=== PATIENT | male | born 1980 | race Caucasian/White ===

== ENCOUNTER 2018-10-20 08:18 | Emergency (ER) | payer SELFPAY ==
--- NOTE | 2018-10-20 08:27 | ER Report ---
History and Physical Time Seen By MD: 08:25 HPI/ROS CHIEF COMPLAINT: Right-sided lower chest pain HISTORY OF PRESENT ILLNESS: Patient is a 38-year-old male here with complaints of right lower rib pain status post fall on Wednesday with acute onset of chest pain and shortness breath starting today. Patient is afebrile, denies productive cough, denies prior history of clots, fevers or chills. Patient is tender on palpation in the right upper quadrant and right lower ribs. There are no obvious signs of ecchymosis, bony deformities at time of evaluation, patient's oxygen saturations remained greater than 94% during evaluation. Patient is hemod ynamically stable, afebrile at time of evaluation. REVIEW OF SYSTEMS: Constitutional: No fever, no chills. Eyes: No discharge. ENT: No sore throat. Cardiovascular: + right sided lower chest pain, no palpitations. Respiratory: No cough, + shortness of breath. Gastrointestinal: No abdominal pain, no vomiting. Genitourinary: No hematuria. Musculoskeletal: No back pain. Skin: No rashes. Neurological: No headache. Allergies: Coded Allergies: No Known Drug Allergies (Unverified , 10/20/18) Home Meds Active Scripts Tramadol Hcl (TRAMADOL HCL) 50 Mg Tablet, 50 MG PO Q6H PRN for PAIN, #12 TAB 0 Refills Prov:AMELIA KIRBY DO 10/20/18 Lidocaine (Lidocaine) 5 % Adh..patch, 1 PATCH TD Q12H PRN for PAIN, #20 PATCH Prov:AMELIA KIRBY DO 10/20/18 Constitutional Vital Sign - Last 24 Hours 10/20/18 10/20/18 10/20/18 10/20/18 08:22 08:30 09:00 09:30 Temp 97.9 Pulse 73 80 73 69 Resp 22 30 77 9 B/P (MAP) 125/85 124/95 (105) /??? /??? Pulse Ox 97 96 96 94 O2 Delivery Room Air 10/20/18 10/20/18 09:58 10:00 Pulse 67 Resp 42 B/P (MAP) 121/90 (100) 119/82 (94) Pulse Ox 94 Physical Exam General Appearance: The patient is alert, has no immediate need for airway protection and no signs of toxicity. Uncomfortable appearing Eyes: Pupils equal and round no pallor or injection. ENT, Mouth: Mucous membranes are moist. Respiratory: There are no retractions, lungs are clear to auscultation, + right lower CP on palpation of lower ribs. Cardiovascular: Regular rate and rhythm. Gastrointestinal: Abdomen is soft and non tender, no masses, bowel sounds normal. Neurological: No focal neuro deficits Skin: Warm and dry, no rashes. Musculoskeletal: Neck is supple non tender. Extremities are nontender, nonswollen and have full range of motion. DIFFERENTIAL DIAGNOSIS: After history and physical exam differential diagnosis was considered for shortness of breath including but not limited to pulmonary infectious process, COPD, asthma, pulmonary embolus and congestive heart failure. Trauma Medical Decision Making Data Points Result Diagram: 10/20/18 0826 10/20/18 0826 Laboratory Hematology Test 10/20/18 08:26 10/20/18 09:00 Red Blood Count 5.41 M/uL (4.00-5.60) Mean Corpuscular Volume 90.9 fL (80.0-96.0) Mean Corpuscular Hemoglobin 31.3 pg (26.0-33.0) Mean Corpuscular Hemoglobin Concent 34.5 g/dL (32.0-36.0) Red Cell Distribution Width 13.0 % (11.5-14.5) Mean Platelet Volume 8.0 fL (7.2-11.1) Neutrophils (%) (Auto) 54.9 % (39.4-72.5) Lymphocytes (%) (Auto) 31.8 % (17.6-49.6) Monocytes (%) (Auto) 8.0 % (4.1-12.4) Eosinophils (%) (Auto) 4.2 % (0.4-6.7) Basophils (%) (Auto) 1.1 % (0.3-1.4) Nucleated RBC Relative Count (auto) 0.2 /100WBC Neutrophils # (Auto) 2.8 K/uL (2.0-7.4) Lymphocytes # (Auto) 1.6 K/uL (1.3-3.6) Monocytes # (Auto) 0.4 K/uL (0.3-1.0) Eosinophils # (Auto) 0.2 K/uL (0.0-0.5) Basophils # (Auto) 0.1 K/uL (0.0-0.1) Nucleated RBC Absolute Count (auto) 0.01 K/uL D-Dimer Quantitative (PE/DVT) 0.40 ug/ml (0-0.50) Sodium Level 142 mmol/L (137-145) Potassium Level 4.2 mmol/L (3.5-5.0) Chloride Level 105 mmol/L (98-107) Carbon Dioxide Level 25 mmol/L (22-30) Blood Urea Nitrogen 13 mg/dl (9-21) Creatinine 0.80 mg/dl (0.66-1.25) Glomerular Filtration Rate Calc > 60.0 Random Glucose 82 mg/dl (75-110) Calcium Level 9.3 mg/dl (8.4-10.2) Total Bilirubin 0.8 mg/dl (0.2-1.3) Aspartate Amino Transf (AST/SGOT) 34 U/L (0-35) Alanine Aminotransferase (ALT/SGPT) 30 U/L (0-56) Alkaline Phosphatase 61 U/L (0-126) Troponin I < 0.012 ng/ml Total Protein 7.7 g/dl (6.3-8.2) Albumin 4.6 g/dl (3.5-5.0) Blood Gas Patient Temperature 97.9 DEGREES Venous Blood pH 7.42 (7.31-7.41) Venous Blood Partial Pressure CO2 33 mmHg Venous Blood Partial Pressure O2 46 mmHg Venous Blood HCO3 22 mmol/L Venous Blood Oxygen Saturation 83 % Venous Blood Base Excess -3 mmol/L Oxygen Liters/Minute Room air Chemistry Test 10/20/18 08:26 10/20/18 09:00 White Blood Count 5.1 k/uL (4.5-11.0) Red Blood Count 5.41 M/uL (4.00-5.60) Hemoglobin 17.0 g/dL (14.0-18.0) Hematocrit 49.2 % (42.0-52.0) Mean Corpuscular Volume 90.9 fL (80.0-96.0) Mean Corpuscular Hemoglobin 31.3 pg (26.0-33.0) Mean Corpuscular Hemoglobin Concent 34.5 g/dL (32.0-36.0) Red Cell Distribution Width 13.0 % (11.5-14.5) Platelet Count 241 K/uL (150-450) Mean Platelet Volume 8.0 fL (7.2-11.1) Neutrophils (%) (Auto) 54.9 % (39.4-72.5) Lymphocytes (%) (Auto) 31.8 % (17.6-49.6) Monocytes (%) (Auto) 8.0 % (4.1-12.4) Eosinophils (%) (Auto) 4.2 % (0.4-6.7) Basophils (%) (Auto) 1.1 % (0.3-1.4) Nucleated RBC Relative Count (auto) 0.2 /100WBC Neutrophils # (Auto) 2.8 K/uL (2.0-7.4) Lymphocytes # (Auto) 1.6 K/uL (1.3-3.6) Monocytes # (Auto) 0.4 K/uL (0.3-1.0) Eosinophils # (Auto) 0.2 K/uL (0.0-0.5) Basophils # (Auto) 0.1 K/uL (0.0-0.1) Nucleated RBC Absolute Count (auto) 0.01 K/uL D-Dimer Quantitative (PE/DVT) 0.40 ug/ml (0-0.50) Glomerular Filtration Rate Calc > 60.0 Calcium Level 9.3 mg/dl (8.4-10.2) Total Bilirubin 0.8 mg/dl (0.2-1.3) Aspartate Amino Transf (AST/SGOT) 34 U/L (0-35) Alanine Aminotransferase (ALT/SGPT) 30 U/L (0-56) Alkaline Phosphatase 61 U/L (0-126) Troponin I < 0.012 ng/ml Total Protein 7.7 g/dl (6.3-8.2) Albumin 4.6 g/dl (3.5-5.0) Blood Gas Patient Temperature 97.9 DEGREES Venous Blood pH 7.42 (7.31-7.41) Venous Blood Partial Pressure CO2 33 mmHg Venous Blood Partial Pressure O2 46 mmHg Venous Blood HCO3 22 mmol/L Venous Blood Oxygen Saturation 83 % Venous Blood Base Excess -3 mmol/L Oxygen Liters/Minute Room air Coagulation Test 10/20/18 08:26 D-Dimer Quantitative (PE/DVT) 0.40 ug/ml EKG/Imaging EKG Interpretation PATIENT NAME: BRUCE DYE : [id number] MR: [id number] V: [id number] EXAM DATE: ORDERING PHYSICIAN: AMELIA KIRBY TECHNOLOGIST: PARAS Jones Reason : SOB Blood Pressure : / mmHG Vent. Rate : 072 BPM Atrial Rate : 072 BPM P-R Int : 152 ms QRS Dur : 088 ms QT Int : 356 ms P-R-T Axes : 030 -03 002 degrees QTc Int : 389 ms Normal sinus rhythm Normal ECG No previous ECGs available Referred By: KOFI Confirmed By: Imaging PATIENT NAME: Bruce Dye : 1980 MR: [id number] V: [id number] EXAM DATE: ORDERING PHYSICIAN: AMELIA KIRBY TECHNOLOGIST: Location: [facility] - [place] Patient: Bruce Dye : 1980 Visit/Account:[id number] Date of Sevice: 10/20/2018 Study: Frontal and lateral views of the chest Indication: Right-sided chest pain, difficulty breathing Comparison study: None Findings: PA and lateral views of the chest demonstrate no evidence of acute infiltrate. There is no evidence of pleural effusion. There is no evidence of pneumothorax. The mediastinal, cardiac, and diaphragmatic contours are unremarkable. The visualized bony structures are unremarkable. IMPRESSION: No acute cardiopulmonary abnormality identified. ED Course/Re-evaluation ED Course Patient is a 38-year-old male here with complaints of right lower rib pain, shortness breath on deep inspiration starting within the last 24 hours. Patient reports remote trauma on Wednesday after falling but pain acutely started within the past day. Patient is afebrile, hemodynamically stable at time of evaluation. Chest x-ray was clear with no signs of pneumothorax, pneumonia. D-dimer, troponin were negative, bedside ultrasound of the right upper quadrant showed no acute free fluid. Patient was given Toradol, lidocaine patch and given a prescription for lidocaine and tramadol as needed. Patient was stable at time of discharge. Return precautions provided. Close PCP follow-up recommended. Decision to Disposition Date: October 20, 2018 Decision to Disposition Time: 10:06 Depart Departure Latest Vital Signs Vital Signs Date Time Temp Pulse Resp B/P (MAP) Pulse Ox O2 Delivery O2 Flow Rate FiO2 10/20/18 10:00 67 42 119/82 (94) 94 10/20/18 08:22 97.9 Room Air Impression: Primary Impression: Contusion of rib on right side Condition: Improved Disposition: HOME OR SELF-CARE New Scripts Tramadol Hcl (TRAMADOL HCL) 50 Mg Tablet 50 MG PO Q6H PRN for PAIN, #12 TAB 0 Refills Prov: AMELIA KIRBY DO 10/20/18 Lidocaine (Lidocaine) 5 % Adh..patch 1 PATCH TD Q12H PRN for PAIN, #20 PATCH Prov: AMELIA KIRBY DO 10/20/18 Patient Instructions: Contusion in Adults (ED) Additional Instructions: Please drink plenty of water. No fractures are identified on x-ray imaging. You may take ibuprofen, naproxen or acetaminophen as needed for primary pain control. You may take tramadol 1 tablet every 8 hours as needed for breakthrough pain control, you may apply a lidocaine patch for 12 hours with a 12 hour break. Please follow-up with your family doctor in the next 24-48 hours. Please return promptly if you develop fevers, chills, worsening pain, increasing shortness breath. AMELIA KIRBY DO October 20, 2018 08:27
[2018-10-20] MEDS ORDERED: KETOROLAC 60 MG/2 ML VIAL IM ONE (08:45)
--- NOTE | 2018-10-20 08:45 | EKG ---
FACILITY: [facility] - [place] PATIENT NAME: ASHLEY DYE : [id number] MR: [id number] V: [id number] EXAM DATE: ORDERING PHYSICIAN: AMELIA KIRBY TECHNOLOGIST: PARAS Jones Reason : SOB Blood Pressure : / mmHG Vent. Rate : 072 BPM Atrial Rate : 072 BPM P-R Int : 152 ms QRS Dur : 088 ms QT Int : 356 ms P-R-T Axes : 030 -03 002 degrees QTc Int : 389 ms Normal sinus rhythm Normal ECG No previous ECGs available Confirmed by Suman Mohan ([id number]) on 10/20/2018 7:57:25 PM Referred By: KOFI Confirmed By:Suman Finney
[2018-10-20 08:51] LABS: PLATELET COUNT, AUTOMATED 241 K/uL (150-450)
[2018-10-20] MEDS ORDERED: KETOROLAC 30 MG/ML VIAL IVP ONE (08:55)
--- NOTE | 2018-10-20 09:29 | RADIOLOGY IMAGING REPORT ---
FACILITY: [facility] - [place] PATIENT NAME: Bruce Jean : 1980 MR: [id number] V: [id number] EXAM DATE: ORDERING PHYSICIAN: AMELIA KIRBY TECHNOLOGIST: Location: [facility] - [place] Patient: Bruce Jean : 1980 Visit/Account:[id number] Date of Sevice: 10/20/2018 Study: Frontal and lateral views of the chest Indication: Right-sided chest pain, difficulty breathing Comparison study: None Findings: PA and lateral views of the chest demonstrate no evidence of acute infiltrate. There is no evidence of pleural effusion. There is no evidence of pneumothorax. The mediastinal, cardiac, and diaphragmatic contours are unremarkable. The visualized bony structures are unremarkable. IMPRESSION: No acute cardiopulmonary abnormality identified. Report Dictated By: Charlie Pedroza at 10/20/2018 9:21 AM Report E-Signed By: Charlie Pedroza at 10/20/2018 9:24 AM WSN:[id number]
[2018-10-20 10:00] VITALS: BP 119/82
[2018-10-20] MEDS ORDERED: LIDOCAINE 5% PATCH TP SCH (10:00)
[2018-10-20] MEDS ORDERED: LIDO700A19 TD (10:09)
[2018-10-20] MEDS ORDERED: TRAM-420 PO (10:09)
[2018-10-20] MEDS ORDERED: PATCH REMOVAL 1 EA TOP SCH (21:00)
== END 2018-10-20 10:25 | disposition home or self-care (01) ==
LOC: ER 08:32
DX: S30.1XXA Contusion of abdominal wall, initial encounter (principal)
CPT/HCPCS: 36415; 71046; 82803; 84484; 85025; 85379; 93005; 96374; 99284; J1885; 82040; 82247; 82310; 82374; 82435; 82565; 82947; 84075; 84132; 84155; 84295; 84450; 84460; 84520